=== PATIENT | male | born 1950 | race Caucasian/White ===

== ENCOUNTER 2023-04-08 17:06 | Emergency (ER) | payer MEDICARE, OTHER ==
[2023-04-08] MEDS ORDERED: HYDROmorphone 1 MG/ML Syringe IM ONE (17:22)
[2023-04-08] MEDS ORDERED: Ketorolac 60 MG/2 ML SDV IM ONE (17:23)
[2023-04-08] MEDS ORDERED: Cyclobenzaprine 10 MG Tab PO ONE (17:23)
== END 2023-04-08 18:51 | disposition home or self-care (01) ==
LOC: JD.ED 17:06
DX: M54.50 Low back pain, unspecified (principal)
CPT/HCPCS: 72100; 96372; 99283; A9270; J1170; J1885